=== PATIENT | female | born 1975 | race Caucasian/White ===

== ENCOUNTER 2021-07-30 03:59 | Emergency (ER) | payer BC, OTHER ==
[2021-07-30 04:26] VITALS: O2SAT 97
[2021-07-30] MEDS ORDERED: DECADRON 10MG INJ. IM ONE (04:51)
--- NOTE | 2021-07-30 04:57 | ERPHSYRPT ---
- History of Present Illness Time Seen by Provider: 07/30/21 04:39 Source: patient Exam Limitations: no limitations Patient Subjective Stated Complaint: Patient c/o sore throat that started yesterday morning. States it got worse through the night. She is not worried about the pain but she feels like it is getting hard to swallow and she becomes SOB at times. States, "I'm afraid my throat is going to close up or something." C/O newly developed body aches, headache, and cough. Triage Nursing Assessment: Patient ambulated back to ED without difficulties. She is alert and oriented and answering questions appropriately. Throat examined and does not appear swollen. No blisters or sores noted in throat. Slightly coarse lung sounds noted on expiration to left posterior lobe. Right lung clear. No cough noted during assessment. Patient was noted to be SOB briefly at times during assessment. Physician History: 46 years old female presented in the ER with chief complaint of sore throat since yesterday, gradually worsening with minimal nonproductive cough without shortness of breath. Subjective feeling of fever and chills. Timing/Duration: gradual onset, yesterday Severity: moderate ENT Location: throat Prearrival Treatment: over the counter meds Associated Symptoms: cough, headache, sore throat Allergies/Adverse Reactions: azithromycin [From Zithromax] Allergy (Intermediate, Verified 07/30/21 04:09) Rash Home Medications: Fluoxetine HCl 20 mg [Prozac 20 MG] 20 mg PO DAILY 07/30/21 [History] Phentermine HCl 37.5 mg PO DAILY PRN 07/30/21 [History] Hx Tetanus, Diphtheria Vaccination/Date Given: Yes Hx Influenza Vaccination/Date Given: No Hx Pneumococcal Vaccination/Date Given: No Immunizations Up to Date: Yes (Not Tetanus) Travel Risk - International Travel Have you traveled outside of the country in past 3 weeks: No - Coronavirus Screening Close contact with a COVID-19 positive Pt in past 14-21 Days: No - Vaccine Status Have you recieved a Covid-19 vaccination: No - Review of Systems Constitutional: Fever, Chills Eyes: No Symptoms Ears, Nose, & Throat: Throat Pain, Throat Swelling Respiratory: Cough Cardiac: No Symptoms Abdominal/Gastrointestinal: No Symptoms Genitourinary Symptoms: No Symptoms Musculoskeletal: Myalgias Skin: No Symptoms Neurological: No Symptoms Psychological: No Symptoms Endocrine: No Symptoms Hematologic/Lymphatic: No Symptoms - Past Medical History Pertinent Past Medical History: Yes Neurological History: Migraines, Stroke ENT History: No Pertinent History Cardiac History: No Pertinent History Respiratory History: No Pertinent History Endocrine Medical History: No Pertinent History Musculoskeletal History: No Pertinent History GI Medical History: Gallbladder Disease, Polyps Psycho-Social History: Anxiety, Depression Female Reproductive Disorders: Endometriosis Other Medical History: Skin CA - Past Surgical History Past Surgical History: Yes Neuro Surgical History: No Pertinent History Cardiac: No Pertinent History Respiratory: No Pertinent History Gastrointestinal: Cholecystectomy, Other Genitourinary: No Pertinent History Musculoskeletal: No Pertinent History Female Surgical History: Section Other Surgical History: GASTRIC BYPASS, Removal of Skin CA to face, Breast implants - Social History Smoking Status: Former smoker Exposure to second hand smoke: Yes Alcohol Use: Socially Drug Use: none Patient Lives Alone: No Significant Family History: other (migraines) - Female History Hx Last Menstrual Period: Few months ago Hx Now: No - Nursing Vital Signs Nursing Vital Signs: Initial Vital Signs Temperature 97.8 F 07/30/21 04:13 Pulse Rate 96 H 07/30/21 04:13 Respiratory Rate 22 07/30/21 04:13 Blood Pressure 103/68 07/30/21 04:13 O2 Sat by Pulse Oximetry 97 07/30/21 04:13 Pain Scale Pain Intensity 3 - Physical Exam General Appearance: no apparent distress, alert Eye Exam: bilateral eye: normal inspection, PERRL, EOMI Ear Exam: bilateral ear: auricle normal, canal normal, TM normal Nasal Exam: normal inspection Throat Exam: pharynx swelling, pharynx tenderness, tonsillar swelling Neck Exam: normal inspection, supple, full range of motion Cardiovascular/Respiratory Exam: normal breath sounds, regular rate/rhythm Abdominal Exam: non-tender, soft Neurologic Exam: alert, oriented x 3, cooperative Skin Exam: normal color SpO2 Interpretation: normal SpO2: 97 O2 Delivery: Room Air Ordered Tests: Medication Summary Discontinued Medications Generic Name Dose Route Start Last Admin Trade Name Freq PRN Reason Stop Dose Admin Dexamethasone Sodium Phosphate 10 mg 07/30/21 04:51 07/30/21 05:02 Dexamethasone Sod Phosphate 10 Mg/Ml IM 07/30/21 04:52 10 mg STAT ONE Administration Dexamethasone Sodium Phosphate Confirm 07/30/21 05:00 Dexamethasone Sod Phosphate 10 Mg/Ml Administered 07/30/21 05:01 Dose 10 mg .ROUTE .STK-MED ONE Lab/Rad Data: Laboratory Results 07/30/21 07/30/21 07/30/21 Range/Units 05:06 05:06 05:06 Influenza Type A Ag POSITIVE (NEGATIVE) Influenza Type B Ag NEGATIVE (NEGATIVE) SARS-CoV-2 RNA (ALFREDITO) Not Detected (Not Detected) Group A Strep Antibody NOT DETECTED (NEGATIVE) - Progress Progress: unchanged Progress Note: Is given a dose of steroid. Strep is negative, positive influenza A, started on Tamiflu. Counseled pt/family regarding: diagnosis, need for follow-up - Departure Departure Disposition: Home Clinical Impression: Influenza A Acute pharyngitis Qualifiers: Pharyngitis/tonsillitis etiology: unspecified etiology Qualified Code(s): J02.9 - Acute pharyngitis, unspecified Condition: Stable Critical Care Time: No Referrals: HERNAN CARMEN [Primary Care Provider] - Follow up/PCP as directed SOFIYA MELGOZA MD [ACTIVE STAFF] - Follow up/PCP as directed (In 1-2 days for reevaluation) Instructions: Sore Throat, Adult (DC) Additional Instructions: Take Tylenol/ibuprofen as needed. Follow-up with your primary care for reevaluation. Use warm salt water gargles. Return to ER for worsening sore throat, difficulty breathing/fever etc. Prescriptions: Prednisone 20 mg [Deltasone 20 mg] 60 mg PO DAILY 5 Days #15 tablet
[2021-07-30] MEDS ORDERED: DECADRON 10MG INJ. ONE (05:00)
[2021-07-30 05:10] VITALS: BP 106/70; PULSE 90
[2021-07-30 05:41] LABS: INFLUENZA A POSITIVE (NEGATIVE); INFLUENZA B NEGATIVE (NEGATIVE)
== END 2021-07-30 05:18 | disposition home or self-care (01) ==
LOC: ED 03:59
DX: J10.1 Influenza due to other identified influenza virus with other respiratory manifestations (principal); J02.9 Acute pharyngitis, unspecified; R05.9 Cough, unspecified; R51.9 Headache, unspecified
CPT/HCPCS: 87400; 87651; 96372; 99284; U0003; J1100

== ENCOUNTER 2023-07-04 08:45 | Day surgery (SDC) | payer BC ==
--- NOTE | 2023-07-04 07:55 | HP ---
DATE OF SURGERY: 07/04/2023 HISTORY OF PRESENT ILLNESS: The patient is a 48-year-old female with history of some anemia chronic per the patient. Last colonoscopy years ago. No bloody stools. Father with history of colon cancer. Brother and mother had colon cancer. PAST MEDICAL HISTORY: Allergic rhinitis in the past. Anemia. PAST SURGICAL HISTORY: Cholecystectomy. Gastric bypass in the past. Colonoscopy several years ago. Breast implants. Vascular surgery. MEDICATIONS: Adipex, Tylenol, Imitrex. ALLERGIES: ZITHROMAX. FAMILY HISTORY: Depression, arthritis, heartburn. SOCIAL HISTORY: Smoker. No alcohol abuse. REVIEW OF SYSTEMS: Fourteen systems reviewed. No chest pain or palpitations. She denies any current bloody stools. Other systems negative or noncontributory as above and per preadmission questionnaire. PHYSICAL EXAMINATION: GENERAL: No acute distress. HEENT: Sclerae nonicteric. EOMI. Oral mucous membranes moist. NECK: No JVD. CHEST: Equal excursion, nonlabored breathing. CVS: Regular rate and rhythm. ABDOMEN: Soft. No peritoneal signs. EXTREMITIES: No significant edema. NEURO: Alert, oriented, moving extremities symmetrically. RECTAL: Deferred timed to endoscopy exam. PSYCH: Appropriate mood and affect. SKIN: Dry. IMPRESSION: Anemia, very strong family history of colon cancer. The patient is in need of EGD to evaluate for gastritis, peptic ulcer disease or other upper GI source of anemia. She also needs colonoscopy to rule out polyneoplasia or other etiology particularly given her strong family history of colon cancer. She was shown the risk sheet explained the procedure in detail including but not limited to risk of bleeding or infection, risk of bowel injury or perforation possibly requiring further procedure, risk of missed or nondiagnosis or incomplete exam possibly requiring barium enema, other studies or procedures, general risk of anesthesia or sedation, risk of bowel prep but not limited to. Possible inability to diagnose the etiology of her anemia possibly requiring other studies, procedures or referrals. She understands and agrees to the planned procedure, will proceed with EGD and colonoscopy as an outpatient under MAC anesthesia.
[2023-07-04] MEDS ORDERED: Lactated Ringers 1,000 ML IV ONE (08:54)
[2023-07-04] MEDS ORDERED: Lactated Ringers 1,000 ML IV SCH (09:00)
[2023-07-04 09:02] LABS: HCG URINE TEST NEGATIVE (NEGATIVE)
[2023-07-04 09:13] VITALS: RESP 16; TEMP 98.1
[2023-07-04] MEDS ORDERED: Versed 2 MG/2 ML Injection ONE (11:05)
[2023-07-04] MEDS ORDERED: Xylocaine-Mpf 2% 5 Ml Vial ONE (11:05)
[2023-07-04] MEDS ORDERED: DIPRIVAN 200 MG/20 ML IV ONE ×3 (11:06→11:31)
[2023-07-04] MEDS ORDERED: Zofran 4 MG/2 ML VIAL ONE (11:08)
[2023-07-04 12:19] VITALS: BP 107/67; PULSE 83; O2SAT 98
--- NOTE | 2023-07-05 08:03 | OP ---
SURGERY DATE/TIME: 07/04/2023 1112 PREOPERATIVE DIAGNOSIS: Anemia, very strong family history of colon cancer, need for upper and lower endoscopy. POSTOPERATIVE DIAGNOSES: 1) Minimal to mild gastric erythema. 2) No gross ulcers in the GI tract visible endoscopically. 3) Poor bowel prep otherwise no signs of any large masses or obstructing lesions (exam limited by prep). PROCEDURES: 1) EGD with cold biopsy of the esophagogastrojejunostomy, cold biopsy of the stomach. 2) Colonoscopy to cecum. 3) ASA Class III. 4) Withdrawal time for colonoscopy approximately ten minutes. SURGEON: Dr. Sebastien Ayala. ANESTHESIA: MAC. ESTIMATED BLOOD LOSS: Minimal. INDICATIONS: As noted above. Risks and benefits explained in detail and not limited to and consent obtained. DESCRIPTION OF PROCEDURE AND FINDINGS: The patient is taken to the operating room. MAC anesthesia introduced. After official time out and no disagreement with planned procedure, bite block positioned. Video gastroscope easily passed down the esophagus to the small stomach pouch into her small bowel loop down several centimeters down to small bowel. There were no signs of any obvious ulcers or bleeding source in the small bowel. There are no signs of any marginal ulcers. There was a little bit of erythema at the small gastric pouch but no gross ulceration. Cold biopsy is taken. The gastroesophageal junction was unremarkable. Esophagus unremarkable. The scope is withdrawn. The patient tolerated the procedure well. There were no immediate complications. Attention is then turned to colonoscopy. Digital rectal exam did not reveal any rectal masses. Video colonoscope passed up. The prep is limited by a large amount of liquidy semi-solid stool throughout the colon that is suctioned clear as possible. She had enemas preoperative. The scope was passed around eventually to the right lower quadrant with palpation. Visualization of the appendiceal orifice. The patient was suctioned and irrigated as clear as possible but this very much limited the exam for small to medium bleeding. There were no signs of any obstructing masses. No signs of any large masses. The scope is carefully withdrawn over ten minutes, suctioning and irrigating as clear as possible. The scope is pulled back down to the rectum. Digital rectal exam did not reveal any rectal masses. There were no immediate complications. Findings discussed with the family out in the waiting area. I will see her back in the office in a week or two. Will offer her colonoscopy down the road given her strong family history of colon cancer although there was no fresh or old blood on endoscopic view this suggests obvious source of anemia at this time.
== END 2023-07-04 12:29 | disposition home or self-care (01) ==
LOC: SDC 08:45
PROVIDERS: ATTEND Surgery
DX: K31.89 Other diseases of stomach and duodenum (principal); D64.9 Anemia, unspecified; Z80.0 Family history of malignant neoplasm of digestive organs
CPT/HCPCS: 81025; 88305; J2250; J2405; J2704